=== PATIENT | female | born 1990 | race Caucasian/White ===

== ENCOUNTER 2021-11-08 16:36 | Emergency (ER) | payer OTHER, SELFPAY ==
[2021-11-08 16:44] VITALS: BP 152/97; PULSE 72; RESP 14; TEMP 36.7; O2SAT 100
--- NOTE | 2021-11-08 17:00 | ED.URI ---
HPI - URI/Sore Throat General Chief Complaint: Upper Respiratory Infection Stated Complaint: sore throat and ear pain Time Seen by Provider: 11/08/21 17:00 Source: patient and RN notes reviewed Mode of arrival: ambulatory Limitations: no limitations History of Present Illness HPI Narrative: Francheska is a 31-year-old female patient who ambulates into the [facility]. She had a sore throat and bilateral ear pain starting yesterday. States her left ear hurts more than her right. Patient states she is been sneezing and has postnasal drainage. Patient has a history of strep throat MD elicited complaint: sore throat Related Data Allergies Allergy/AdvReac Type Severity Reaction Status Date / Time No Known Allergies Allergy Verified 11/08/21 16:52 Review of Systems Review of Systems: CONSTITUTIONAL: Denies body aches, fever, chills, or sweats. EYES: Denies visual changes, redness, or discharge. ENT: Denies rhinorrhea, +congestion,+ sore throat, +otalgia. CARDIOVASCULAR: Denies chest pain, palpitations, or edema. RESPIRATORY: Denies cough or dyspnea. GASTROINTESTINAL: Denies abdominal pain, nausea, vomiting, or diarrhea. GENITOURINARY: Denies dysuria or hematuria. SKIN: Denies rash, itching, or wounds. MUSCULOSKELETAL: Denies back pain, joint pain, or myalgia. NEUROLOGIC: Denies headache, numbness, tingling, or weakness. PSYCH: Denies depression or anxiety. All systems reviewed & are unremarkable except as noted in HPI and below PMFSH Comments At time of signature, I have reviewed and agree with nursing past medical, surgical, social and family history unless otherwise noted. Please see nursing chart for further information. There is no relevant family history pertinent to the presenting complaint Exam Narrative: GENERAL: Well-appearing, well-nourished, and in no acute distress. HEAD: Normocephalic, atraumatic. EYES: EOMI. No redness or drainage. Conjunctivae normal. ENT: Mucous membranes pink and moist. Nasal membranes are erythematous with clear nasal drainage. Bilateral tympanic membranes are bulging with moderate fluid. Left ear is erythemic. Right ear is slightly pink. Posterior pharynx is erythemic tonsils are 3-4+. No exudate is noted . Uvula midline. NECK: Normal AROM. Supple. No lymphadenopathy. CHEST: No respiratory distress. Clear to auscultation. MUSCULOSKELETAL: No bony tenderness. EXTREMITIES: Normal range of motion. No edema. SKIN: Warm, dry, no rash. Capillary refill normal. Normal skin turgor. NEURO: No focal deficits. Alert and oriented x3. Gait steady. PSYCH: Normal affect. No signs of depression or anxiety. Course Vital Signs Vital signs: Vital Signs Temperature 36.7 C 11/08/21 16:44 Pulse Rate 72 11/08/21 16:44 Respiratory Rate 14 11/08/21 16:44 Blood Pressure 152/97 H 11/08/21 16:44 Pulse Oximetry 100 11/08/21 16:44 Temperature 36.7 C 11/08/21 16:44 Pulse Rate 72 11/08/21 16:44 Respiratory Rate 14 11/08/21 16:44 Blood Pressure 152/97 H 11/08/21 16:44 Pulse Oximetry 100 11/08/21 16:44 Reviewed. Pt has been instructed to follow up with her PCP regarding her elevated blood pressure today. MDM - URI/Sore Throat MDM Narrative Medical decision making narrative: Patient's rapid strep is negative. Patient is complaining of bilateral ear pain. Left ear is fluid filled with moderate bulging and erythemic. Right ear has moderate fluid with moderate bulging and slightly pink. Posterior pharynx is erythemic with moderate edema tonsils are 3-4+ without exudate Throat culture will be sent to lab. patient is requesting a Covid test, she has less than 48 hours of symptoms. So she will be set up for a PCR. Differential Diagnosis Differential diagnosis: Likely upper respiratory infection, otitis media, sinusitis, viral infection and pharyngitis Medical Records Attestation: I reviewed the patient's medical records. Lab Data Attestation: I reviewed the patient's la
== END 2021-11-08 17:11 | disposition home or self-care (01) ==
PROVIDERS: Emergency Provider Nurse Practitioner Family
DX: H66.002 Acute suppurative otitis media without spontaneous rupture of ear drum, left ear (principal); Z20.822 Contact with and (suspected) exposure to COVID-19
CPT/HCPCS: 87081; 87880; 99203; G0463

== ENCOUNTER 2022-02-14 08:56 | Outpatient (CLI) | payer OTHER, SELFPAY ==
--- NOTE | ~2022-02-14 | US_ITS ---
EXAMINATION: US pelvic complete w TV DATE: 02/14/2022 11:22 INDICATION: Irregular menstruation Comparison:No prior studies for comparison. TECHNIQUE: Multiple transabdominal and endovaginal sonographic images of the pelvis performed. FINDINGS: The uterus measures 6.9 x 4.7 x 3.5 cm. The endometrial complex measures 11 mm. The right ovary measures 3.8 x 3.2 x 2.3 cm and the left ovary measures 4 x 2.5 x 2.2 cm. There are small follicles in each ovary. Normal doppler signal in both ovaries. There is free fluid in the pelvis. There are no abnormal masses seen on either side. IMPRESSION: 1. Borderline endometrial thickness. Otherwise, unremarkable pelvic ultrasound. Reviewed, dictated and finalized at location A.
== END 2022-02-14 08:57 | disposition home or self-care (01) ==
PROVIDERS: Visit Provider Nurse Practitioner
DX: N92.6 Irregular menstruation, unspecified (principal)
CPT/HCPCS: 76830; 76856